=== PATIENT | female | born 1985 | race Caucasian/White ===

== ENCOUNTER 2017-02-02 12:08 | Emergency (ER) | payer OTHER ==
--- NOTE | 2017-02-02 12:54 | RAD ---
Exam: 4 view right knee COMPARISON: None INDICATION: Twisted right knee while running. Pain. FINDINGS: AP, lateral and bilateral AP oblique views of the right knee were obtained. A moderate joint effusion is present. Alignment is normal. No fracture is identified. Joint spaces are maintained. IMPRESSION: Moderate joint effusion, however no acute osseous abnormality is identified in the right knee.
[2017-02-02] MEDS ORDERED: HYDROCODONE/ACETAMINOPHEN 5/325MG TABLET ONE (13:26)
== END 2017-02-02 13:50 | disposition home or self-care (01) ==
LOC: ED 12:08
DX: M25.561 Pain in right knee (principal); I49.9 Cardiac arrhythmia, unspecified; E66.9 Obesity, unspecified; W01.198A Fall on same level from slipping, tripping and stumbling with subsequent striking against other object, initial encounter; Y93.02 Activity, running; Y92.9 Unspecified place or not applicable
CPT/HCPCS: 73564; 99283 ×2; A9270